=== PATIENT | male | born 1980 | race Caucasian/White ===

== ENCOUNTER → 2017-03-17 | Day surgery (SDC) | payer OTHER ==
[~2017-03-17] VITALS: Ht 180.3 cm; Wt 135.5 kg
[~2017-03-17] MED LIST: *morphine SULFATE 8 MG/ML PERIprocedure ONLY ONE; ACETAMINOPHEN 1000 MG/100 ML VIAL IV SCH; ACETAMINOPHEN 325 MG TAB PO PRN; BUPIVACAINE/EPINEPHRINE 0.25% PF 10 ML VIAL ONE; CHLORHEXIDINE GLUCONATE 2 % 1 PACK (2 CLOTHS) TOPICAL PRN; DICLOFENAC SODIUM 37.5 MG/ML VIAL IV PUSH ONE; DO NOT ADM ANY ANTICOAGULANT DRUGS PRN; FAMOTIDINE 20 MG/2 ML VIAL ONE; INSULIN HUMAN REGULAR 1,000 UNITS/10 ML VIAL SQ PRN; LACTATED RINGER'S 1000 ML INJ 1,000 ML IV ONE; LACTATED RINGER'S 1000 ML IV PRN; METOPROLOL TARTRATE 25 MG TAB PO PRN; MIDAZOLAM HCL 2 MG/2 ML VIAL ONE; MORPHINE SULFATE 4 MG/ML INJ IV PRN; MORPHINE SULFATE 4 MG/ML INJ IV PUSH PRN; MORPHINE SULFATE 4 MG/ML INJ ONE; NALOXONE HCL 0.4 MG/ML AMP IV PRN; NEOSTIGMINE METHYLSULFATE 10 MG/10 ML VIAL IV PUSH ONE; ONDANSETRON HCL 4 MG/2 ML VIAL IV PRN; ONDANSETRON HCL 4 MG/2 ML VIAL IV PUSH ONE; ONDANSETRON HCL 4 MG/2 ML VIAL IV PUSH PRN; PHENYLEPH/NS 1000 MCG/10 ML SYR IV ONE; POVIDONE IODINE 5% (ANTISEPSIS KIT) 4 APPLICATIONS EACH NARE PRN; PROPOFOL 200 MG/20 ML AMP IV ONE; Post-op Orders (for Pharmacy) MISC XX ONE; SODIUM CHLORID 0.9% 500 ML IV PRN; SODIUM CHLORIDE 0.9% FLUSH 10 ML FLUSH IV FLUSH PRN; ceFAZolin 2 GM PREMIX 50 ML IV SCH; ceFAZolin INJ 1,000 MG VIAL IV ONE; diphenhydrAMINE HCL 25 MG CAP PO PRN; fentaNYL CITRATE 250 MCG/5 ML AMP ONE; oxyCODONE/ACETAMINOPHEN 5 MG/325 MG TAB PO PRN
[2017-03-17 09:33] VITALS: BP 150/83; PULSE 71; RESP 18; TEMP 97.9; O2SAT 95
[2017-03-17 16:00] VITALS: BP 133/81; PULSE 85; RESP 20; TEMP 98.7; O2SAT 98
[2017-03-17] MEDS: KETOROLAC TROMETHAMINE 30 MG/ML (IVP) VIAL IV PUSH SCH (17:01)
[2017-03-17] MEDS: LACTATED RINGER'S 1000 ML INJ 1,000 ML IV SCH (17:02)
[2017-03-17] MEDS: SODIUM CHLORIDE 0.9% FLUSH 10 ML FLUSH IV FLUSH SCH (19:33)
[2017-03-17] MEDS: oxyCODONE/ACETAMINOPHEN 10 MG/325 MG TAB PO PRN (19:43)
[2017-03-17 20:00] VITALS: BP 127/73; PULSE 79; RESP 20; TEMP 97.9; O2SAT 97
[2017-03-17 21:39] VITALS: O2SAT 97
[2017-03-18] VITALS: BP 130/79; PULSE 69; RESP 20; TEMP 97.8; O2SAT 97
[2017-03-18] MEDS: KETOROLAC TROMETHAMINE 30 MG/ML (IVP) VIAL IV PUSH SCH ×3 (00:04→12:24)
[2017-03-18] MEDS: LACTATED RINGER'S 1000 ML INJ 1,000 ML IV SCH ×2 (00:37→07:34)
[2017-03-18 04:00] VITALS: BP 128/72; PULSE 77; RESP 20; TEMP 97.2; O2SAT 96
[2017-03-18] MEDS: oxyCODONE/ACETAMINOPHEN 10 MG/325 MG TAB PO PRN ×2 (06:16→14:16)
[2017-03-18] MEDS: SODIUM CHLORIDE 0.9% FLUSH 10 ML FLUSH IV FLUSH SCH (07:33)
[2017-03-18 08:00] VITALS: BP 126/60; PULSE 84; RESP 19; TEMP 99; O2SAT 96
[2017-03-18 10:20] VITALS: O2SAT 96
[2017-03-18 12:00] VITALS: BP 121/76; PULSE 94; RESP 17; TEMP 97.4; O2SAT 97
--- NOTE | 2017-03-18 14:17 | HHI.PR ---
Subjective Subjective Notes He is in some pain but overall doing well. O2 sats in vitals are good. Tolerating diet. Objective Vitals/I&O Vital Signs Date Time Temp Pulse Resp B/P Pulse Ox O2 Delivery O2 Flow Rate FiO2 03/18/17 12:00 97.4 94 17 121/76 97 03/17/17 21:39 Nasal Cannula 2.00 Narrative Exam NAD Abd: soft, round, post op ttp; inc c/d/i A/P Assessment and Plan 36 yo M POD 1 s/p lap VHR with mesh. Post op he had desaturations in PACU and required overnight observation. He has had no issues since. D/c home. Stable. Reg diet. Activity- no heavy lifting. F/u in office 2 wks. Has rx at home for percocet. Also use motrin. Jean Campbell MD March 18, 2017 14:17
--- NOTE | 2017-03-18 14:25 | PD.OP ---
cc: Jean Campbell MD Operative Report Date of Surgery: March 17, 2017 Preoperative Diagnosis: (1) Umbilical hernia Postoperative Diagnosis: (1) Umbilical hernia Procedure: Laparoscopic umbilical hernia repair with mesh Anesthesia: SUDEEP Surgeon: Jean Campbell Sample Builder(s): NEHEMIAS NORRIS Operation and Findings: EBL: 10 cc Operative findings: The patient had a 3x3 cm umbilical hernia. Procedure in detail: The patient was taken to the operating room and placed supine position. Gen. endotracheal anesthesia was induced. The abdomen was prepped and draped in usual sterile fashion and a surgical timeout was performed to verify correct patient procedure and site. Appropriate perioperative antibiotics were administered. In the left mid abdomen 5 mm incision was made after infiltration with local anesthetic and a 5 mm port placed using the direct Optiview technique. The abdomen was insufflated to 15 mmHg which the patient tolerated well. Another 5 mm port was placed in the left upper quadrant region and one in the right mid abdomen. A 12 mm port placed in the right upper quadrant. Attention was turned to the umbilicus. There was a proximally 3 x 3 cm fascial defect at the umbilicus. There was incarcerated preperitoneal fat which was reduced and dissected from the umbilical tissue with the Harmonic scalpel. The fatty tissue of the ligament inferior to the umbilicus was taken down using the Harmonic scalpel to about 5 cm inferior to the fascial edge. There were no adhesions. A 6 x 8" ventral light ST mesh with the deployment system was chosen. The mesh was loaded onto the introducing trocar and inserted through the 12 mm port. It was unrolled laparoscopically and the deployment system inflated. The middle suture was grasped after making a small incision superior to the umbilicus and introducing the suture passer. The mass was thus approximated to the anterior abdominal wall. It was oriented vertically such that the 8 inch portion was vertical in the 6 inch horizontal. There was greater than 5 cm overlap on each edge of the fascia. The mesh was tacked in place around the edges with the pro-tack device. The deployment system was removed. The entire mesh was secured using the remaining portion of the Protek device and also an absorbable tack. There is good approximation of mesh the abdominal wall. There was good hemostasis. At this point the abdomen was allowed to desufflate and trochars were removed. The skin was closed with subcuticular 4-0 Monocryl suture as well as Dermabond. An abdominal binder was placed. The patient tolerated the procedure well was extubated and taken to PACU in stable condition. Jean Campbell MD March 18, 2017 14:25
== END | disposition home or self-care (01) ==
LOC: HSDC 08:28 → N07A 16:40 → HSDC 16:40
PROVIDERS: ATTEND Surgery
DX: K42.9 Umbilical hernia without obstruction or gangrene (principal)
CPT/HCPCS: 00750; 49652; C1781; J0131; J0690; J1130; J1885; J2250; J2270; J2370; J2405; J2710; J3010; J7120; 94150